=== PATIENT | male | born 1970 | race Caucasian/White ===

== ENCOUNTER 2017-02-23 14:38 | Emergency (ER) | payer SELFPAY ==
[~2017-02-23] VITALS: Ht 175.3 cm; Wt 72.6 kg
[2017-02-23] MEDS ORDERED: IBUP200C PO (14:48)
[2017-02-23] MEDS ORDERED: AMOX875T PO (16:26)
[2017-02-23] MEDS ORDERED: NORCOTAB PO (16:26)
[2017-02-23] MEDS ORDERED: LIDOCAINE VISCOUS 2% SOLN 15ML UDC SSP ONE (16:30)
[2017-02-23 16:33] VITALS: BP 164/95
== END 2017-02-23 16:45 | disposition home or self-care (01) ==
LOC: M ED 15:54
DX: K04.7 Periapical abscess without sinus (principal); F17.200 Nicotine dependence, unspecified, uncomplicated

== ENCOUNTER 2021-04-24 08:49 | Emergency (ER) | payer SELFPAY ==
[~2021-04-24] VITALS: Ht 177.8 cm; Wt 71.0 kg
[~2021-04-24 08:49] MED LIST: AMOX875T PO; HYDR-3715 PO; IBUP200C25 PO
[2021-04-24 08:50] VITALS: BP 146/88
[2021-04-24] MEDS ORDERED: NAPR220C14 PO (08:57)
[2021-04-24] MEDS ORDERED: CLINDAMYCIN 150MG CAPSULE PO ONE (10:35)
[2021-04-24] MEDS ORDERED: CLEO150C PO (10:36)
[2021-04-24] MEDS ORDERED: CLEO300C2 PO (10:36)
== END 2021-04-24 10:45 | disposition home or self-care (01) ==
LOC: M ED 08:49
DX: K04.7 Periapical abscess without sinus (principal); R22.0 Localized swelling, mass and lump, head; F17.200 Nicotine dependence, unspecified, uncomplicated